=== PATIENT | male | born 1985 | race African-American/Black ===

== ENCOUNTER 2019-11-06 17:43 | Emergency (ER) | payer MEDICAID, OTHER ==
[~2019-11-06] VITALS: Ht 177.8 cm; Wt 76.0 kg
[2019-11-06] MEDS ORDERED: NABU-90 PO (18:30)
[2019-11-07] MEDS ORDERED: KETOROLAC 30MG/ML VIAL IM ONE (01:30)
[2019-11-07] MEDS ORDERED: HYDROCODONE/ACETAMINOPHEN 10/325MG TABLET PO ONE (02:00)
[2019-11-07] MEDS ORDERED: HYDROCODONE/ACETAMINOPHEN 10/325MG TABLET PO SCH (03:45)
[2019-11-07] MEDS ORDERED: CYCLOBENZAPRINE 10MG TABLET PO ONE (07:45)
[2019-11-07] MEDS ORDERED: MORPHINE SULFATE 4 MG/ML CPJ (NOT FOR IM USE) IV STA (11:01)
[2019-11-07] MEDS ORDERED: ONDANSETRON HCL 4MG/2ML INJ IV STA (11:01)
[2019-11-07] MEDS ORDERED: DEXAMETHASONE 10 MG/ML VIAL IV ONE (11:15)
[2019-11-07 11:31] LABS: BASOPHILS % 0.4 % (0.0-2.0); EOSINOPHILS % 0.6 % (0.0-5.0); HEMATOCRIT. 40.6 % (42.0-52.0); HEMOGLOBIN. 13.7 g/dL (14.0-18.0); LYMPHOCYTES % 24.8 % (20.0-50.0); MEAN CORPUSCULAR HEMOGLOBIN 31.2 pg (28.0-32.0); MEAN CORPUSCULAR VOLUME 92.3 fL (80.0-94.0); MONOCYTES % 4.7 % (2.0-8.0); NEUTROPHILS % 69.5 % (40.0-76.0); PLATELET 250 x1000/uL (130-400); RED CELL DISTRIBUTION WIDTH 13.8 % (11.6-14.6)
[2019-11-07 11:41] LABS: INR 0.9; PROTHROMBIN TIME 10.1 sec (9.6-11.0)
[2019-11-07 13:00] VITALS: BP 121/74
[2019-11-07 14:16] LABS: CHLORIDE 108 mEq/L (98-107)
== END 2019-11-07 13:05 | disposition short-term general hospital (02) ==
LOC: ER 17:54
DX: M54.2 Cervicalgia (principal); F17.290 Nicotine dependence, other tobacco product, uncomplicated; J45.909 Unspecified asthma, uncomplicated; Z98.890 Other specified postprocedural states; Z88.6 Allergy status to analgesic agent
CPT/HCPCS: 36415; 72125; 72141; 80048; 85025; 85610; 85730; 96374; 96375; 99285; 99406; J1100; J1885; J2270; J2405